=== PATIENT | male | born 1985 | race Caucasian/White ===

== ENCOUNTER 2019-02-17 00:26 | Emergency (ER) | payer SELFPAY ==
[~2019-02-17] VITALS: Ht 165.1 cm; Wt 70.0 kg
[2019-02-17] MEDS ORDERED: HALOPERIDOL 5 MG INJ IM STA (00:38)
[2019-02-17 00:58] VITALS: Ht 165.1 cm; Wt 70.0 kg
[2019-02-17] MEDS ORDERED: DIPHENHYDRAMINE 50 MG INJ IM ONE (01:00)
[2019-02-17] MEDS ORDERED: LORAZEPAM 2 MG INJ IM ONE (01:00)
--- NOTE | 2019-02-17 03:04 | ERD ---
ER Documentation Chief Complaint Chief Complaint AGITATED BEHAVIOR. HPI Is a 31 female brought in by [employer] and father with agitated behavior. Patient apparently has methamphetamines ROS All systems reviewed and are negative except as per history of present illness. Allergies Allergies: Coded Allergies: No Known Allergy (Unverified , 02/17/19) PMhx/Soc Medical and Surgical Hx: pt denies Medical Hx, pt denies Surgical Hx Smoking Status: Unknown if ever smoked Physical Exam Vitals Vital Signs Date Temp Pulse Resp B/P (MAP) Pulse Ox O2 O2 Flow FiO2 Time Delivery Rate 02/17/19 99.2 79 18 102/76 100 03:00 (85) 02/17/19 99.2 79 21 102/70 95 02:45 (81) 02/17/19 99.2 81 20 100/68 95 02:30 (79) 02/17/19 99.2 92 20 96/55 (69) 95 02:15 02/17/19 99.2 90 18 99/75 (83) 95 02:00 02/17/19 99.2 90 18 99/65 (76) 95 01:45 02/17/19 99.2 92 18 112/73 95 01:30 (86) 02/17/19 99.2 107 18 119/79 100 01:15 (92) 02/17/19 99.2 122 30 122/93 100 01:04 (103) 02/17/19 99.2 122 30 122/93 100 01:00 (103) 02/17/19 99.2 122 30 124/83 100 00:58 (97) Physical Exam Const: No acute distress Head: Atraumatic Eyes: Normal Conjunctiva ENT: Normal External Ears, Nose and Mouth. Neck: Full range of motion. No meningismus. Resp: Clear to auscultation bilaterally Cardio: Regular rate and rhythm, no murmurs Abd: Soft, non tender, non distended. Normal bowel sounds Skin: No petechiae or rashes Back: No midline or flank tenderness Ext: No cyanosis, or edema Neur: Awake and alert Psych: Normal Mood and Affect Result Diagram: 02/17/19 0038 02/17/19 0124 Results 24 hrs Laboratory Tests Test 02/17/19 00:38 02/17/19 01:24 02/17/19 02:08 White Blood Count 12.2 10^3/ul Red Blood Count 4.59 10^6/ul Hemoglobin 14.2 g/dl Hematocrit 39.1 % Mean Corpuscular Volume 85.2 fl Mean Corpuscular Hemoglobin 30.9 pg Mean Corpuscular 36.3 g/dl Hemoglobin Concent Red Cell Distribution Width 11.4 % Platelet Count 208 10^3/UL Mean Platelet Volume 9.6 fl Immature Granulocytes % 0.300 % Neutrophils % 77.5 % Lymphocytes % 12.2 % Monocytes % 8.7 % Eosinophils % 0.8 % Basophils % 0.5 % Nucleated Red Blood Cells % 0.0 /100WBC Immature Granulocytes # 0.040 10^3/ul Neutrophils # 9.4 10^3/ul Lymphocytes # 1.5 10^3/ul Monocytes # 1.1 10^3/ul Eosinophils # 0.1 10^3/ul Basophils # 0.1 10^3/ul Nucleated Red Blood Cells # 0.0 10^3/ul Sodium Level 145 mmol/L Potassium Level 3.0 mmol/L Chloride Level 105 mmol/L Carbon Dioxide Level 23 mmol/L Anion Gap 17 Blood Urea Nitrogen 35 mg/dl Creatinine 1.95 mg/dl Est Glomerular Filtrat 40 mL/min Rate mL/min Glucose Level 107 mg/dl Calcium Level 9.6 mg/dl Total Bilirubin 1.1 mg/dl Direct Bilirubin 0.00 mg/dl Indirect Bilirubin 1.1 mg/dl Aspartate Amino 693 IU/L Transf (AST/SGOT) Alanine 317 IU/L Aminotransferase (ALT/SGPT) Alkaline Phosphatase 62 IU/L Total Protein 8.3 g/dl Albumin 4.6 g/dl Globulin 3.70 g/dl Albumin/Globulin Ratio 1.24 Salicylates Level < 1.0 mg/dl Acetaminophen Level < 10.0 ug/ml Ethyl Alcohol Level < 10.0 mg/dl Urine Color STEFAN Urine Clarity CLOUDY Urine pH 5.0 Urine Specific [place] 1.024 Urine Ketones TRACE mg/dL Urine Nitrite NEGATIVE mg/dL Urine Bilirubin NEGATIVE mg/dL Urine Urobilinogen 1+ mg/dL Urine Leukocyte Esterase NEGATIVE Rusty/ul Urine Microscopic RBC 18 /HPF Urine Microscopic WBC 4 /HPF Urine Squamous Epithelial Cells FEW /HPF Urine Amorphous Crystals FEW /HPF Urine Mucus FEW /HPF Urine Hemoglobin 2+ mg/dL Urine Glucose NEGATIVE mg/dL Urine Total Protein 2+ mg/dl Urine Opiates Screen Negative Urine Barbiturates Negative Urine Amphetamines Screen POSITIVE Urine Benzodiazepines Screen Negative Urine Cocaine Screen Negative Urine Cannabinoids Negative Current Medications Medications Dose Sig/Magaly Start Time Status Last (Trade) Ordered Route PRN Stop Time Admin Dose Reason Admin Haloperidol 5 mg ONCE STAT 02/17/19 DC 02/17/19 (Haldol) IM 00:38 00:49 02/17/19 00:39 50 mg ONCE ONCE 02/17/19 DC 02/17/19 Diphenhydrami IM 01:00 00:49 ne HCl 02/17/19 01:01 (Benadryl) Lorazepam 2 mg ONCE ONCE 02/17/19 DC 02/17/19 (Ativan) IM 01:00 00:49 02/17/19 01:01 Procedures/MDM Patient had to be sedated single severe agitation. Upon awaking, I will recommend telemetry psychiatry to oncoming physician. Patient's behavioral symptoms have stabilized while in the department. Patient is medically cleared and appropriate for psychiatric evaluation and work up. No e/o neurologic, toxic, infectious, or metabolic cause. Departure Diagnosis: Primary Impression: Agitation Condition: Stable CARLOS ALBERTO CUBA Feb 17, 2019 03:04
[2019-02-17 11:30] VITALS: BP 134/89; PULSE 71; RESP 16
== END 2019-02-17 11:43 | disposition home or self-care (01) ==
LOC: E/R 00:26
DX: R45.1 Restlessness and agitation (principal)
CPT/HCPCS: 36415; 80053; 80307; 81001; 85025; 96372; 99284; J1200; J1630; J2060